=== PATIENT | female | born 1975 | race Hispanic/Latino ===

== ENCOUNTER 2018-04-03 04:06 | Emergency (ER) | payer OTHER ==
[~2018-04-03 04:06] MED LIST: LEVO150T11 PO
[2018-04-03] MEDS ORDERED: CYCLOBENZAPRINE HCL 10 MG TABLET ONE (04:40)
[2018-04-03] MEDS ORDERED: DIAZEPAM 5 MG TABLET ONE (04:41)
[2018-04-03 04:45] LABS: BASOPHILS % (AUTO) 1.8 % (0.0-5.0); EOSINOPHILS % (AUTO) 1.7 % (0.0-8.0); HEMATOCRIT 35.7 % (36-48); LYMPHOCYTES % (AUTO) 29.4 % (21.0-51.0); MEAN CORPUSCULAR HEMOGLOBIN 26.4 pg (27.0-33.0); MEAN CORPUSCULAR HGB CONC 32.2 g/dL (32.0-36.0); MEAN CORPUSCULAR VOLUME 82.1 fL (79-99); MONOCYTES % (AUTO) 6.5 % (3.0-13.0); NEUTROPHILS % (AUTO) 60.6 % (40.0-77.0); NUCLEATED RED BLOOD CELLS 0.1 % (0.0-0.19); PLATELET COUNT (AUTO) 309 K/uL (130-400); RED BLOOD CELL COUNT(AUTO) 4.35 MIL/uL (4.00-5.50); RED CELL DISTRIBUTION WIDTH 20.1 % (11.0-15.5); WHITE BLOOD COUNT (AUTO) 8.3 K/uL (4.8-10.8)
[2018-04-03 04:53] LABS: CREATININE 0.6 mg/dL (0.5-1.5)
[2018-04-03 04:57] LABS: ALBUMIN 3.6 g/dL (3.5-5.0); BILIRUBIN,TOTAL 0.4 mg/dL (0.2-1.0); TOTAL PROTEIN, SERUM 7.5 g/dL (6.0-8.3)
[2018-04-03] MEDS ORDERED: HYDROCODONE/ACETAMINOPHEN 10/325 MG TAB ONE (05:40)
== END 2018-04-03 06:18 | disposition home or self-care (01) ==
LOC: EDH 04:06
DX: S13.4XXA Sprain of ligaments of cervical spine, initial encounter (principal); Z72.0 Tobacco use; X58.XXXA Exposure to other specified factors, initial encounter; Y93.89 Activity, other specified; Y92.098 Other place in other non-institutional residence as the place of occurrence of the external cause; Y99.8 Other external cause status
CPT/HCPCS: 36415; 71045; 80053; 82550; 84484; 85025; 93005; 94761

== ENCOUNTER 2019-06-24 19:02 | Emergency (ER) | payer SELFPAY ==
[2019-06-24 19:35] LABS: BASOPHILS % (AUTO) 0.9 % (0.0-5.0); EOSINOPHILS % (AUTO) 1.3 % (0.0-8.0); HEMATOCRIT 38.5 % (36-48); LYMPHOCYTES % (AUTO) 38.3 % (21.0-51.0); MEAN CORPUSCULAR HEMOGLOBIN 29.1 pg (27.0-33.0); MEAN CORPUSCULAR HGB CONC 31.9 g/dL (32.0-36.0); MONOCYTES % (AUTO) 5.3 % (3.0-13.0); NEUTROPHILS % (AUTO) 53.9 % (40.0-77.0); PLATELET COUNT (AUTO) 253 K/uL (130-400); RED BLOOD CELL COUNT(AUTO) 4.23 MIL/uL (4.00-5.50); RED CELL DISTRIBUTION WIDTH 14.2 % (11.0-15.5); WHITE BLOOD COUNT (AUTO) 7.9 K/uL (4.8-10.8)
[2019-06-24 19:41] LABS: APPEARANCE,URINE Clear (CLEAR); BILIRUBIN,URINE Negative (NEGATIVE); COLOR,URINE Yellow (YELLOW); GLUCOSE, URINE (UA) Negative (NEGATIVE); KETONES,URINE Negative (NEGATIVE); LEUKOCYTE ESTERASE ,URINE Small (NEGATIVE); NITRATE,URINE Negative (NEGATIVE); OCCULT BLOOD,URINE Negative (NEGATIVE); PROTEIN,URINE Negative (NEGATIVE)
[2019-06-24 19:46] LABS: HCG,QUAL RESULT NEGATIVE (NEGATIVE)
[2019-06-24 19:53] LABS: CREATININE 0.7 mg/dL (0.5-1.5); INR 0.96 (0.85-1.15); PARTIAL THROMBOPLASTIN TIME 29.1 SEC (26.3-35.5); POTASSIUM 3.8 mmol/L (3.5-5.1); PROTHROMBIN TIME 10.1 SEC (9.6-11.6)
[2019-06-24 19:58] LABS: BACTERIA,URINE Few /HPF (None Seen); RBC,URINE None Seen /HPF (0-1); SQUAMOUS EPITHELIAL CELL,UR 0-2 /HPF (0-2)
[2019-06-24 19:58] LABS: BILIRUBIN,TOTAL 0.3 mg/dL (0.2-1.0); TOTAL PROTEIN, SERUM 7.8 g/dL (6.0-8.3)
[2019-06-24 20:10] LABS: AMPHET/METH SCREEN,URINE NEGATIVE (NEGATIVE); BARBITURATE SCREEN, URINE NEGATIVE (NEGATIVE); BENZODIAZEPINES SCREEN,URINE NEGATIVE (NEGATIVE); CANNABINOID SCREEN,URINE NEGATIVE (NEGATIVE); COCAINE SCREEN,URINE NEGATIVE (NEGATIVE); OPIATE SCREEN,URINE NEGATIVE (NEGATIVE); PHENCYCLIDINE SCREEN,URINE NEGATIVE (NEGATIVE)
[2019-06-24] MEDS ORDERED: ASPIRIN 325 MG TABLET ONE (20:37)
[2019-06-24] MEDS ORDERED: NITROGLYCERIN 1GM/1 INCH PACKET TD ONE (20:37)
[2019-06-24] MEDS ORDERED: KETOROLAC TROMETHAMINE 30MG/ML ONE (21:01)
[2019-06-24] MEDS ORDERED: SODIUM CHLORIDE 0.9% 1000ML 1,000 ML IV ONE (21:01)
[2019-06-24] MEDS ORDERED: MAGNESIUM HYDROXIDE 30 ML/UDCUP ONE (21:15)
[2019-06-24] MEDS ORDERED: LIDOCAINE HCL 2% VISCOUS 15 ML UDCUP ONE (21:15)
== END 2019-06-24 23:13 | disposition home or self-care (01) ==
LOC: EDH 19:02
DX: R07.89 Other chest pain (principal); R06.02 Shortness of breath; R11.0 Nausea; R00.2 Palpitations; R20.2 Paresthesia of skin
CPT/HCPCS: 36415; 71045; 80053; 80305; 81001; 81025; 82550; 84484 ×2; 85025; 85610; 85730; 93005 ×2; 96374; 99285; J1885; J7030

== ENCOUNTER 2019-06-26 03:23 | Emergency (ER) | payer SELFPAY ==
[2019-06-26 03:50] LABS: BASOPHILS % (AUTO) 0.7 % (0.0-5.0); EOSINOPHILS % (AUTO) 1.8 % (0.0-8.0); HEMATOCRIT 33.9 % (36-48); LYMPHOCYTES % (AUTO) 42.2 % (21.0-51.0); MEAN CORPUSCULAR HGB CONC 31.9 g/dL (32.0-36.0); MEAN CORPUSCULAR VOLUME 91.1 fL (79-99); MONOCYTES % (AUTO) 7.7 % (3.0-13.0); NEUTROPHILS % (AUTO) 47.3 % (40.0-77.0); PLATELET COUNT (AUTO) 219 K/uL (130-400); RED BLOOD CELL COUNT(AUTO) 3.72 MIL/uL (4.00-5.50); RED CELL DISTRIBUTION WIDTH 14.2 % (11.0-15.5); WHITE BLOOD COUNT (AUTO) 6.1 K/uL (4.8-10.8)
[2019-06-26 04:01] LABS: CREATININE 0.7 mg/dL (0.5-1.5); POTASSIUM 3.7 mmol/L (3.5-5.1)
[2019-06-26 04:05] LABS: ALBUMIN 3.4 g/dL (3.5-5.0); BILIRUBIN,TOTAL 0.3 mg/dL (0.2-1.0); TOTAL PROTEIN, SERUM 6.5 g/dL (6.0-8.3)
[2019-06-26 04:07] LABS: INR 0.96 (0.85-1.15); PARTIAL THROMBOPLASTIN TIME 29.9 SEC (26.3-35.5); PROTHROMBIN TIME 10.1 SEC (9.6-11.6)
[2019-06-26] MEDS ORDERED: ORPHENADRINE CITRATE 30 MG/ML ML ONE (04:21)
[2019-06-26] MEDS ORDERED: KETOROLAC TROMETHAMINE 30MG/ML ONE (04:21)
== END 2019-06-26 05:13 | disposition home or self-care (01) ==
LOC: EDH 03:23
DX: R07.89 Other chest pain (principal); R06.02 Shortness of breath; E03.9 Hypothyroidism, unspecified
CPT/HCPCS: 36415; 71045; 80053; 82550; 83690; 84484; 85025; 85610; 85730; 93005; 96374; 96375; 99285; J1885; J2360

== ENCOUNTER 2025-04-30 02:02 | Emergency (ER) | payer MEDICAID ==
[~2025-04-30] VITALS: Ht 172.7 cm; Wt 99.8 kg
--- NOTE | 2025-04-30 02:28 | EKG ---
[facility] Test Date: 2025-04-30 Test Time: 02:20:05 Pat Name: ELIEZER JAVED Department: ED Room: Gender: F Worm Sorter: [id number] : 1975 Requested By: CAROLINA CHOPRA Order Number: [id number] Reading MD: Kenney Mcdaniel Measurements Intervals Hayes Rate: 57 P: 50 WV: 160 QRS: 25 QRSD: 90 T: 32 QT: 453 QTc: 443 Interpretive Statements Sinus rhythm Compared to ECG 06/26/2019 03:17:42 No significant changes Electronically Signed On 04-30-2025 18:58:16 ORAL PATHOLOGIST by Kenney Mcdaniel Please click the below link to view image of tracing.
--- NOTE | 2025-04-30 02:33 | ERN ---
General Chief Complaint: Chest Pain Stated Complaint: CHEST PAIN, SOB ONSET 1900 Time Seen by MD: 02:09 Time Seen by Midlevel: 02:09 Source: patient, EMS History of Present Illness Initial Comments The patient is a 49-year-old female presenting to the emergency department for evaluation of midsternal chest pain and shortness for breath started at 7:00 p.m. yesterday. The pain is described as sharp radiates to her back. The patient was [id number] mg of aspirin and 0.4 mg of the nitroglycerin sublingual x1 prior to arrival. Patient reports a recent surgery for gallbladder 3 weeks ago. Allergies: Coded Allergies: No Known Drug Allergies (Verified Allergy, 07/26/13) Home Meds Reported Medications Levothyroxine Sodium (Levothyroxine Sodium) 150 Mcg Tablet, 150 MCG PO DAILYBKFST, TAB 02/06/16 Past Medical History Past Medical History: CVA Past Surgical History: Bariatric Surgery, Surgical History Other: ABDOMINOPLASTY, BREAST AUGMENTATION, HERNIA REPAIR ROS Dictation CONSTITUTIONAL: Negative except for HPI HEAD/FACE: Negative except for HPI EENT: Negative except for HPI RESPIRATORY: Negative except for HPI GASTROINTESTINAL/ABDOMINAL: Negative except for HPI GENITOURINARY: Negative except for HPI MUSCULOSKELETAL: Negative except for HPI INTEGUMENTARY: Negative except for HPI NEUROLOGICAL/PSYCH: Negative except for HPI HEMATOLOGIC/LYMPHATIC: Negative except for HPI All Systems Negative, Except as noted above. 13 point review of systems assessed and all negative except for above. Physical Exam Physical Exam Dictation Vital Signs reviewed General Appearance: Alert, oriented x 3, no acute distress, well developed, nourished. Head and Face: non-traumatic. Eyes: PERRL, pink conjunctivas, eyelid no trauma, anterior chamber with arcus senilis. Ears: Pinnas intact and no signs of trauma or erythema ear canals clear and no discharge TM no erythema Nose: No discharge, no bleeding. Oropharynx: Mouth normal, tongue pink, pharynx clear,no erythema, tonsils no exudates, no abscesses noted, mucous membrane moist Neck: Supple, non-tender, no thyromegaly, no masses, no JVD, no bruits Breast:Deferred Chest:No tenderness, no crepitus, no paradoxical movement, no retractions Lungs:Clear, well-ventilated, symmetric, no rales, no wheezing, no rhonchi, no stridor, good breath sounds bilaterally Heart: Regular rate, regular rhythm, no murmur, no gallops Vascular: no peripheral edema, Abdomen: Soft, positive bowel sounds, nondistended, no guarding, nontender, no rebound, no masses no hepatomegaly, no splenomegaly, no Burnette's sign, no hernias. Rectal: Deferred Genital: Deferred Neurological: Normal speech, motor function intact, sensory function intact Musculoskeletal: Neck nontender, full range of motion, back nontender, full range of motion, Extremities: nontender, full range of motion Skin: Color pink, dry, no turgor, no rash, no lacerations, no abrasions, no contusions. Lymphatic: Deferred Results Laboratory and Microbiology Lab and Micro Result Laboratory Tests Test 04/30/25 02:16 White Blood Count 8.5 K/uL (4.8-10.8) Red Blood Count 3.87 MIL/uL (4.00-5.50) L Hemoglobin 11.1 g/dL (12.0-16.0) L Hematocrit 34.6 % (36-48) L Mean Corpuscular Volume 89.4 fL (79-99) Mean Corpuscular Hemoglobin 28.7 pg (27.0-33.0) Mean Corpuscular Hemoglobin Concent 32.1 g/dL (32.0-36.0) Red Cell Distribution Width 15.0 % (11.0-15.5) Platelet Count 232 K/uL (130-400) Mean Platelet Volume 11.0 fL (7.5-10.5) H Immature Granulocyte % (Auto) 0.5 % (0-1) Neutrophils (%) (Auto) 66.9 % (40.0-77.0) Lymphocytes (%) (Auto) 24.0 % (21.0-51.0) Monocytes (%) (Auto) 6.6 % (3.0-13.0) Eosinophils (%) (Auto) 1.5 % (0.0-8.0) Basophils (%) (Auto) 0.5 % (0.0-5.0) Neutrophils # (Auto) 5.7 K/uL (1.8-7.7) Lymphocytes # (Auto) 2.0 K/uL (1.0-4.8) Monocytes # (Auto) 0.6 K/uL (0.1-1.0) Eosinophils # (Auto) 0.13 K/uL (0.00-0.70) Basophils # (Auto) 0.04 K/uL (0.00-0.20) Absolute Immature Granulocyte (auto 0.04 K/uL (0-1) Nucleated Red Blood Cells 0.0 % (0.0-0.19) Sodium Level 141 mmol/L (136-145) Potassium Level 3.9 mmol/L (3.5-5.1) Chloride Level 106 mmol/L (101-111) Carbon Dioxide Level 27 mmol/L (21-32) Blood Urea Nitrogen 18 mg/dL (7-18) Creatinine 0.6 mg/dL (0.5-1.0) Glomerular Filtration Rate Calc 110 mL/min (>90) Random Glucose 101 mg/dL (70-105) Total Calcium 8.7 mg/dL (8.5-10.1) Total Bilirubin 0.7 mg/dL (0.2-1.0) Direct Bilirubin 0.4 mg/dL (0.0-0.3) H Aspartate Amino Transf (AST/SGOT) 170 U/L (10-37) H Alanine Aminotransferase (ALT/SGPT) 81 U/L (12-78) H Alkaline Phosphatase 150 U/L (50-136) H Total Creatine Kinase 437 U/L (21-232) #*H Troponin I High Sensitivity 4 ng/L (4-50) Total Protein 6.6 g/dL (6.0-8.3) Albumin 3.4 g/dL (3.5-5.0) L Lipase 35 U/L (16-77) MDM Patient is a 49-year-old female who presented to the ER complaining of chest pain, she does have history of cholecystectomy performed 3 weeks ago. Reports the pain is sharp localized in the middle of her chest Chest pain Status post surgical procedure to the gallbladder Chest pain workup was performed, troponin, EKG done, all came within normal limits Liver function performed, results with a normal limits CK level was slightly elevated 437 1 L bolus was given. Patient to follow up with PCP and with the surgeon who performed her cholecystectomy next week. ED Course Orders Procedure Category Date Status Time Vital Signs Per CPOE 04/30/25 Transmitted Routine 02:11 Chest 1vw RAD 04/30/25 Resulted 02:11 12 Lead Ekg Tracing- EKG 04/30/25 Complete Technical 02:11 Oxygen By Nc/Pulse Ox CPOE 04/30/25 Transmitted 02:11 Maintain Iv CPOE 04/30/25 Transmitted 02:11 Iv Insertion CPOE 04/30/25 Transmitted 02:11 Cardiac Monitoring CPOE 04/30/25 Transmitted 02:11 Pulse Oximetry With CPOE 04/30/25 Transmitted Vs And Prn 02:11 Cbc With Differential LAB 04/30/25 Complete 02:11 Activity: Br W/Brp CPOE 04/30/25 Transmitted With Assist 02:11 Creatine Kinase, Total LAB 04/30/25 Complete 02:11 Troponin I High LAB 04/30/25 Complete Sensitivity 02:11 Urinalysis Profile LAB 04/30/25 Logged 02:11 Basic Metabolic Panel LAB 04/30/25 Complete 02:11 Hepatic Function Panel LAB 04/30/25 Complete 02:11 Lipase LAB 04/30/25 Complete 02:11 0.9%Nacl 1000ml (Ns PHA 04/30/25 In Process 1000ml) 03:30 Current Medications Medications (Trade) Dose Ordered Sig/Essence Route PRN Reason Start Time Stop Time Status Last Admin Dose Admin Sodium Chloride 1,000 ml @ 0 mls/hr ONCE ONCE IV 04/30/25 03:30 04/30/25 03:31 04/30/25 03:20 Vital Signs Date Time Temp Pulse Resp B/P (MAP) Pulse Ox O2 Delivery O2 Flow Rate FiO2 04/30/25 02:25 98.6 60 18 135/70 97 Room Air* 0 21 04/30/25 02:04 97.2 61 20 154/80 98 Room Air 0 DX & DISP Disposition: Discharge Departure Impression: Primary Impression: Chest pain Additional Impression: Rhabdomyolysis Condition: Stable Additional Instructions: RETURN TO ER FOR ANY ACUTE OR WORSENING SYMPTOMS. FOLLOW-UP IN 1-2 DAYS WITH PRIMARY PROVIDER FOR RECHECK OF TODAY'S SYMPTOMS. Referrals: SELF,REFERRAL (PCP) I have reviewed the case, and I agree with, Diagnosis and Plan I performed the substantive portion of the visit. I have reviewed and personally made and approve the management plan that is documented in the note by myself or the RAMESH. I acknowledge for responsibility for the patient's management plan. LAYNE DOYLE PAC Apr 30, 2025 02:33 CAROLINA LEON MD Apr 30, 2025 03:35
[2025-04-30 02:34] LABS: IMMATURE GRANULOCYTE ABSOLUTE 0.04 K/uL (0-1); NUCLEATED RED BLOOD CELLS 0.0 % (0.0-0.19); PLATELET COUNT (AUTO) 232 K/uL (130-400); RED BLOOD CELL COUNT(AUTO) 3.87 MIL/uL (4.00-5.50); RED CELL DISTRIBUTION WIDTH 15.0 % (11.0-15.5); WHITE BLOOD COUNT (AUTO) 8.5 K/uL (4.8-10.8)
[2025-04-30 02:45] LABS: CREATININE 0.6 mg/dL (0.5-1.0); GLOMERULAR FILTR. RATE CALC 110.0 mL/min (>90); GLUCOSE,RANDOM 101.0 mg/dL (70-105); SODIUM SERUM 141.0 mmol/L (136-145); UREA NITROGEN, BLOOD 18.0 mg/dL (7-18)
[2025-04-30 02:58] LABS: ASPARTATE AMINOTRANSFERASE 170.0 U/L (10-37); TOTAL PROTEIN, SERUM 6.6 g/dL (6.0-8.3)
[2025-04-30 03:02] LABS: CREATINE KINASE, TOTAL 437.0 U/L (21-232)
--- NOTE | 2025-04-30 03:06 | HMCIMG ---
EXAM: CR Chest, 1 View. CLINICAL HISTORY: CHEST PAIN COMPARISON: None provided. FINDINGS: LUNGS: The lungs show no infiltrate or other acute finding. PLEURAL SPACES: No pleural effusion or pneumothorax. MEDIASTINUM: Cardiac size and mediastinal contours are within normal limits. BONES: No acute osseous abnormality. IMPRESSION: No acute cardiopulmonary pathology is evident. /[place]
[2025-04-30] MEDS: 0.9%NACL 1000ML 1,000 ML IV ONE (03:20)
[2025-04-30 03:57] VITALS: BP 128/68; PULSE 60; RESP 18; TEMP 97.6; O2SAT 98
== END 2025-04-30 03:59 | disposition home or self-care (01) ==
LOC: EDH 02:02
DX: M62.82 Rhabdomyolysis (principal); R07.89 Other chest pain; R07.2 Precordial pain; Z86.73 Personal history of transient ischemic attack (TIA), and cerebral infarction without residual deficits; Z98.890 Other specified postprocedural states
CPT/HCPCS: 99285; 71045; 82550; 80076; 84484; 80048; 83690; 85025; 36415; 93005; J7030